=== PATIENT | male | born 1975 | race Asian ===

== ENCOUNTER 2019-03-14 22:28 | Emergency (ER) | payer OTHER ==
[~2019-03-14] VITALS: Ht 167.6 cm; Wt 86.2 kg
[2019-03-14 22:34] VITALS: BP_SYST 137
[2019-03-14] MEDS ORDERED: FERR-69 PO (22:38)
--- NOTE | 2019-03-14 22:40 | NUR ---
Patient to ER bed 05 to gown for evaluation. Side rails up. Report given to SHERICE Guillaume
--- NOTE | 2019-03-14 22:45 | NUR ---
Dr. Hair bedside for Pt eval
[2019-03-14] MEDS ORDERED: HYDR-4038 PO (22:46)
[2019-03-14] MEDS ORDERED: DIPH25CA83 PO (22:50)
[2019-03-14] MEDS ORDERED: TRAZ-250 PO (22:50)
--- NOTE | 2019-03-14 22:50 | NUR ---
Pt BIBA with father to ED C/O altered mental status and drowsiness after unwitnessed fall off chair that occurred earlier today. Patient also had a fever which was resolved by Tylenol. X-ray was performed earlier today but it was not diagnostic. Per father, patient is usually more talkative and is less communicative now. Patient did speak after the incident. No other injuries and or complaints noted. VSS no s/s of acute distress. Resting on gurney rails up
[2019-03-14] MEDS ORDERED: VIS50 PO (22:52)
[2019-03-14] MEDS ORDERED: NACL 0.9% 1,000 ML IV ONE (23:00)
[2019-03-14 23:11] LABS: BILIRUBIN,URINE NEGATIVE (NEGATIVE); BLOOD, URINE NEGATIVE (NEGATIVE); CLARITY/URINE CLEAR (CLEAR); COLOR,URINE YELLOW (YELLOW); GLUCOSE,URINE NEGATIVE (NEGATIVE); KETONES,URINE NEGATIVE (NEGATIVE); LEUKOCYTE ESTERASE ,URINE NEGATIVE (NEGATIVE); NITRITE, URINE NEGATIVE (NEGATIVE); PROTEIN URINE 1+ (NEGATIVE); UROBILINOGEN,URINE 0.2 (0.2-1.0)
--- NOTE | 2019-03-14 23:13 | NUR ---
Portable CXR bedside Pt in stable condition
--- NOTE | 2019-03-14 23:15 | NUR ---
Pt taken to CT scan in stable condition
[2019-03-14 23:16] LABS: HEMATOCRIT 27.8 % (36-54); HEMOGLOBIN 9.1 g/dL (14.0-18.0); MEAN CORPUSCULAR HEMOGLOBIN 27 pg (27-31); MEAN CORPUSCULAR HGB CONC 33 % (32-36); MEAN CORPUSCULAR VOLUME 81 fL (79.0-98.0); PLATELET COUNT (AUTO) 366 K/uL (130-430); RED BLOOD CELL COUNT(AUTO) 3.45 MIL/uL (4.2-6.2); RED CELL DISTRIBUTION WIDTH 13.4 % (9.0-15.0); WHITE BLOOD COUNT (AUTO) 7.8 K/uL (4.8-10.8)
[2019-03-14 23:23] LABS: BACTERIA,URINE RARE /HPF (None Seen); RBC,URINE 0-3 /HPF (0-3); WBC,URINE 0-3 /HPF (0-3)
[2019-03-14] MEDS ORDERED: MAG-151 PO (23:25)
--- NOTE | 2019-03-14 23:25 | NUR ---
Pt back from Radiology, well tolerated
[2019-03-14] MEDS ORDERED: MOM PO (23:26)
[2019-03-14] MEDS ORDERED: ACET-2165 PO (23:27)
[2019-03-14] MEDS ORDERED: CAT.1 PO (23:28)
[2019-03-14] MEDS ORDERED: NOR10 PO (23:29)
[2019-03-14 23:35] LABS: CALCIUM 8.1 mg/dL (8.4-11.0); CREATININE 4.44 mg/dL (0.55-1.30); POTASSIUM 4.2 mmol/L (3.5-5.1)
[2019-03-14 23:43] LABS: ATYPICAL LYMPHOCYTES % 0 % (0-0); BAND % (MANUAL) 2 % (0-6); BASOPHILS % (MANUAL) 0 % (0-2); EOSINOPHILS % (MANUAL) 2 % (0-7); LYMPHOCYTES % (MANUAL) 12 % (20-46); METAMYELOCYTES % 0 % (0-0); MONOCYTES % (MANUAL) 21 % (0-11); MYELOCYTES % 1 % (0-0)
[2019-03-14 23:47] LABS: TOTAL BILIRUBIN 0.2 mg/dL (0.0-1.0)
[2019-03-15] MEDS ORDERED: LORazepam 2 MG/ML VIAL IVP ONE (01:00)
--- NOTE | 2019-03-15 01:00 | NUR ---
Pt appears to be aggitated. Standing up and pacing. Pt holds EKG sticker and attempts to throw it at me. States, "fuck all you homos." Father at bedside. States, "I am going to go home, he seems to be more aggitated with me here." He left his number [phone]
--- NOTE | 2019-03-15 02:05 | NUR ---
VSS no s/s of acute distress Resting on gurney rails up
--- NOTE | 2019-03-15 03:15 | NUR ---
Pt having intermittent verbal out bursts and lashing out at ED Staff verbally
[2019-03-15 04:45] VITALS: BP_SYST 120
--- NOTE | 2019-03-15 04:45 | NUR ---
[facility] transport bedside for returning pt to [facility] where pt is a current resident of
--- NOTE | 2019-03-15 04:45 | NUR ---
Patient given written and verbal discharge instructions and verbalizes understanding. ER MD discussed with patient the results and treatment provided. Patient in stable condition. ID arm band removed. IV catheter removed intact and dressing applied, no active bleeding. Rx of Levaquin given. Patient educated on pain management and to follow up with PMD. Pain Scale 0/10 Opportunity for questions provided and answered. Medication side effect fact sheet provided.
== END 2019-03-15 04:45 | disposition home or self-care (01) ==
LOC: SED 22:28
DX: N28.9 Disorder of kidney and ureter, unspecified (principal); R50.9 Fever, unspecified; D64.9 Anemia, unspecified; J32.9 Chronic sinusitis, unspecified; Z91.018 Allergy to other foods; Z88.8 Allergy status to other drugs, medicaments and biological substances; Z79.899 Other long term (current) drug therapy; W07.XXXA Fall from chair, initial encounter; Y93.89 Activity, other specified; Y92.89 Other specified places as the place of occurrence of the external cause; Y99.8 Other external cause status
CPT/HCPCS: 36415; 70450; 71045; 72125; 80053; 81000; 82550; 83605; 84484; 85007; 85027; 87040; 93005 ×2; 96361; 96374; 99284; J2060; J7030

== ENCOUNTER 2019-04-25 11:05 | Emergency (ER) | payer OTHER ==
[~2019-04-25] VITALS: Ht 170.2 cm; Wt 81.6 kg
[2019-04-25 11:05] VITALS: BP_SYST 105
[~2019-04-25 11:05] MED LIST: ACET-2165 PO; CAT.1 PO; DIPH25CA83 PO; FERR-69 PO; HYDR-4038 PO; MAG-151 PO; MOM PO; NOR10 PO; TRAZ-250 PO; VIS50 PO
--- NOTE | 2019-04-25 11:05 | NUR ---
BIB [facility] from [place] on 5150 hold. Awaiting [facility] sitter to arrive
--- NOTE | 2019-04-25 11:21 | NUR ---
Pt to bed 6. [facility] sneed at bedside
--- NOTE | 2019-04-25 11:25 | NUR ---
pt arrives from [facility] for med clearance d/t CRP of 9.49. Pt is curretly on a 5150 hold, sitter is at the bedside. Pt is combative and agreesive towards the staff. Currently attempting to kick the staff,
--- NOTE | 2019-04-25 11:29 | NUR ---
MELANY Perez at bedside examining patient.
--- NOTE | 2019-04-25 12:04 | NUR ---
pt is currently getting labs drawn at the bedside.
[2019-04-25 12:18] LABS: BASOPHILS # (AUTO) 0.1 K/uL (0.0-0.2); BASOPHILS % (AUTO) 0.7 % (0.0-2.0); EOSINOPHILS # (AUTO) 0.4 K/uL (0.0-0.4); EOSINOPHILS % (AUTO) 5.1 % (0.0-4.0); HEMATOCRIT 26.1 % (36-54); HEMOGLOBIN 8.8 g/dL (14.0-18.0); LYMPHOCYTES % (AUTO) 27.5 % (20.5-51.5); MEAN CORPUSCULAR HEMOGLOBIN 27 pg (27-31); MEAN CORPUSCULAR HGB CONC 34 % (32-36); MEAN CORPUSCULAR VOLUME 78 fL (79.0-98.0); MONOCYTES # (AUTO) 0.5 K/uL (0.0-1.0); MONOCYTES % (AUTO) 7.3 % (1.7-9.3); NEUTROPHILS # (AUTO) 4.3 K/uL (1.8-7.7); NEUTROPHILS % (AUTO) 59.4 % (40.0-70.0); PLATELET COUNT (AUTO) 309 K/uL (130-430); RED BLOOD CELL COUNT(AUTO) 3.33 MIL/uL (4.2-6.2); RED CELL DISTRIBUTION WIDTH 15.2 % (9.0-15.0); WHITE BLOOD COUNT (AUTO) 7.2 K/uL (4.8-10.8)
[2019-04-25 12:33] LABS: CALCIUM 7.9 mg/dL (8.4-11.0); CREATININE 4.21 mg/dL (0.55-1.30)
[2019-04-25 12:51] LABS: ALBUMIN 3.2 g/dL (3.4-4.8); TOTAL BILIRUBIN 0.1 mg/dL (0.0-1.0)
--- NOTE | 2019-04-25 12:59 | NUR ---
Spoke w/ Landy from [facility] , informed that the pt will be returning back and has been medically cleared.
[2019-04-25 13:04] VITALS: BP_SYST 105
--- NOTE | 2019-04-25 13:16 | NUR ---
Pt resting at this time, VSS, respriations even and unlabored.
--- NOTE | 2019-04-25 15:00 | NUR ---
report given to [facility] paramedics. Pt will be returning to [facility]. Pt has been medically cleared. Spoke w/ Landy from the intake department
--- NOTE | 2019-04-25 15:12 | NUR ---
Patient given written and verbal discharge instructions and verbalizes understanding. ER MD discussed with patient the results and treatment provided. Patient in stable condition. ID arm band removed. Patient educated on pain management and to follow up with PMD. Pain Scale 0/10. Opportunity for questions provided and answered. Medication side effect fact sheet provided.
== END 2019-04-25 13:04 | disposition home or self-care (01) ==
LOC: SED 11:05
DX: R79.9 Abnormal finding of blood chemistry, unspecified (principal); I10 Essential (primary) hypertension; F20.9 Schizophrenia, unspecified; Z88.0 Allergy status to penicillin; Z88.8 Allergy status to other drugs, medicaments and biological substances; Z79.899 Other long term (current) drug therapy
CPT/HCPCS: 36415; 71045; 80053; 83605; 85025; 87040-TC; 93005; 99284